=== PATIENT | female | born 1935 | race Caucasian/White ===

== ENCOUNTER 2023-12-23 16:38 | Emergency (ER) | payer OTHER, SELFPAY ==
[2023-12-23 16:42] VITALS: BP 133/94
[2023-12-23 16:43] VITALS: BP 133/94
[2023-12-23 16:46] VITALS: BMI 19.8
[2023-12-23 17:00] VITALS: BP 139/91
[2023-12-23 17:31] LABS: % Basophils 0.4 % (0-2); % Eosinophils 0.6 % (0-6); % Immature Granulocytes 0.2 % (0-0.5); % Lymphocytes 11.1 % (20.5-51.1); % Monocytes 7.6 % (1.7-9.3); % Neutrophils 80.1 % (42.2-75.2); Absolute Eosinophils 0.1 10^3/uL (0-0.7); Absolute Lymphocytes 0.9 10^3/uL (1.2-3.4); Absolute Monocytes 0.6 10^3/uL (0.1-0.6); Absolute Neutrophils 6.7 10^3/uL (1.4-6.5); Hematocrit 41.3 % (37.0-47.0); Hemoglobin 13.6 g/dL (12.0-16.0); Mean Corp Hgb Conc. 32.9 g/dL (33.0-37.0); Mean Corpuscular Hgb 29.2 pg (27.0-31.0); Mean Corpuscular Volume 88.6 fL (81.0-99.0); Mean Platelet Volume 10.2 fL (7.4-10.4); Nucleated Red Blood Cells % 0 %; Platelet Count 233 10^3/uL (130-400); Red Blood Cell Count 4.66 10^6/uL (4.20-5.40); Red Cell Dist. Width 14.4 % (11.5-14.5); White Blood Cell Count 8.4 10^3/uL (4.8-10.8)
[2023-12-23 17:34] LABS: Urine Albumin 1+ (Neg - Trace); Urine Bilirubin 1+ (Negative); Urine Character Very Cloudy (Clear); Urine Color Yellow; Urine Glucose Negative (Negative); Urine Ketone Trace (Negative); Urine Leukocyte 2+ (Negative); Urine Nitrite Negative (Negative); Urine Occult Blood 1+ (Negative); Urine Specific Gravity 1.015 (<1.030); Urine Urobilinogen Negative (Neg - 1+); Urine pH 6.5 (5.0-9.0)
[2023-12-23 17:43] LABS: ALT (SGPT) 17 U/L (0-35); AST (SGOT) 12 U/L (14-36); Albumin 4.3 g/dl (3.5-5.0); Alkaline Phosphatase 107 U/L (38-126); Blood Urea Nitrogen 24 mg/dl (7-17); Calcium 10.8 mg/dl (8.4-10.2); Carbon Dioxide 29 mmol/L (22-30); Chloride 106 mmol/L (98-107); Estimated Creatinine Clearance 44 ml/min; Glucose 116 mg/dl (70-99); Potassium 4.9 mmol/L (3.5-5.1); Sodium 144 mmol/L (135-145); Total Bilirubin 0.7 mg/dl (0.2-1.3); Total Protein 7.1 g/dl (6.3-8.2); eGFR > 60.00
[2023-12-23 17:44] LABS: Lipase 45 U/L (23-300)
[2023-12-23 18:00] VITALS: BP 154/87
[2023-12-23 18:36] LABS: Urine Bacteria Moderate (Negative); Urine White Cell >100 /HPF (0-5)
[2023-12-23 20:22] VITALS: BP 129/84
[2023-12-23] MEDS: MONUROL 3 GM PO (20:45)
[2023-12-23] MEDS: ROCEPHIN 2.85709999999999997 MG IM (22:32)
[2023-12-23 23:06] VITALS: BP 134/73
--- NOTE | 2023-12-23 23:10 | ED.GENMED ---
History of Present Illness
General
Chief Complaint: Abdominal Pain
Source: senior living
Exam Limitations: none
Time Seen by Provider: 12/23/23 16:39
Nursing documentation reviewed up to this point in time: agreed with
Travel History
Have you had any contact with someone who has COVID-19?: Unable to Answer
Do you have any symptoms of coronavirus? Fever > 100 degrees, chills, cough, shortness of breath, sore throat, loss of taste or smell, muscle aches, or headache?: Unable to Answer
History of Present Illness
History of Present Illness:
Patient to ED with complaint of RLQ abdominal pain. Unknown when pain first started. Sent to ED by [facility] staff for eval. On arrival she is awake and alert but confused (baseline). Afebrile.
Past History
Past History
ED Past Medical History: Asthma, HTN, Hypercholesterolemia and Other (Rivera's palsy, vertigo)
ED Past Surgical History: Gynecological and Other (Patient has a history of a hysterectomy, anal fissure repair, bilateral cataract surgery)
Social History
Tobacco: Former smoker
Alcohol: None
Drug: None
Personal:
Living: senior living
Employment: Retired
Family History
Family History: Other (Thyroid disease)
Review of Systems
Review of Systems
Allergies reviewed?: Yes
All Other Systems: ROS reviewed and negative except as documented in HPI and ROS
Constitutional: Reports no symptoms
EENT: Reports no symptoms
Respiratory: Reports no symptoms
Cardiac: Reports no symptoms
ABD/GI: Reports abdominal pain
: Reports no symptoms
Musculoskeletal: Reports no symptoms
Skin: Reports no symptoms
Neurological: Reports no symptoms
Psychiatric: Reports no symptoms
Phy Exam
General Physical Exam
General Presentation: well appearing and no apparent distress
General age: appears stated age
General Skin: warm and dry
General Habitus: normal
General Mental: alert
Cardiovascular Exam
Cardiovascular Exam: regular rate/rhythm and no edema
Pulmonary Exam
Pulmonary Exam: lungs clear and no respiratory distress
Gastrointestinal Exam
Gastrointestinal Exam: normal bowel sounds, no organomegaly, non distended and no cva tenderness
Palpation: generalized: Minimal tenderness
Musculoskeletal Exam
Musculoskeletal Exam: full ROM and neuro vasc intact
Skin Exam
Skin Exam: normal color, warm/dry and no rash
Psychiatric Exam
Psychiatric Exam: normal mood/affect
Course
Orders/Labs/Results
Orders:
Orders
12/23/23 16:53
Abdomen Xray - 1 View [CR Abdomen - 1 View] Urgent
Comment:
Reason For Exam: abd. pain
12/23/23 16:57
Complete Blood Count/With Diff Urgent
Comprehensive Metabolic Panel Urgent
Lipase Urgent
12/23/23 16:59
Urinalysis Reflex To Culture Urgent
Date Specimen was Collected: 12/23/23
Time Specimen was Collected: 16:57
Urine Microscopic Reflex Cult Urgent
Urine Culture Urgent
SALO Source: U
Specimen Description:
Date Specimen was Collected: 12/23/23
Time Specimen was Collected: 16:57
12/23/23 19:20
Enema- Treatment ONCE
Type: Mineral Oil
Fosfomycin [Monurol] 3 gm PO ONCE ONE
12/23/23 23:00
CefTRIAXone [Rocephin] 1,000 mg Intramuscular Injection 0 ml IM ONCE
Abnormal Lab Results
12/23/23 12/23/23
16:57 16:59
MCHC 32.9 L g/dL
(33.0-37.0)
Absolute Neuts (auto) 6.7 H 10^3/uL
(1.4-6.5)
Absolute Lymphs (auto) 0.9 L 10^3/uL
(1.2-3.4)
Neutrophils % 80.1 H %
(42.2-75.2)
Lymphocytes % 11.1 L %
(20.5-51.1)
BUN 24 H mg/dl
(7-17)
Glucose 116 H mg/dl
(70-99)
Calcium 10.8 H mg/dl
(8.4-10.2)
AST 12 L U/L
(14-36)
Urine Ketones Trace A
(Negative)
Ur Occult Blood Reflex 1+ A
(Negative)
Urine Bilirubin 1+ A
(Negative)
Leukocyte Esterase Rfl 2+ A
(Negative)
Urine WBC (Reflex) >100 A /HPF
(0-5)
Urine Bacteria (Reflex) Moderate A
(Negative)
Urine Albumin (Reflex) 1+ A
(Neg - Trace)
12/23/23 16:57
12/23/23 16:57
Vital Signs
Initial and Last Documented VS:
Initial Vital Signs
Temp Pulse Resp BP Pulse Ox
98.9 F 77 18 133/94 96
12/23/23 16:42 12/23/23 16:42 12/23/23 16:42 12/23/23 16:42 12/23/23 16:42
Last Documented Vital Signs
Temp Pulse Resp BP Pulse Ox
98.9 F 75 18 134/73 97
12/23/23 16:42 12/23/23 23:06 12/23/23 23:06 12/23/23 23:06 12/23/23 23:06
*Radiology
Radiology exam reviewed: radiology read reviewed
*Pulse Oximetry
Patient hypoxic: no
*Critical Care Note
Total Time (30-74mins, 75-104mins- exclusive of procedures): Not Applicable
Update Note
Update Note:
Labs reviewed. +UTI. Initially ordered 1 dose of fosfomycin however she as refused to drink med. After multiple failed attempts stephanie was given an IM dose of rocephin. Tolerated med well. She is discharged back to her facility with rx for
bactrim DS. Abd xray reveals large amt of stool in rectum. Given enema in department and she was able to pass a large amt of stool. No further intervention required.
ED Attending Note
-
Portions of this chart may have been created with voice recognition software.� Occasional wrong word or��sound alike� substitutions may have occurred due to the inherent limitations of voice recognition software.
Discharge Plan
Departure
Patient Disposition: Home (Routine Discharge)
Date of Disposition: 12/23/23
Time of Disposition: 20:22
Patient with high blood pressure during this ER visit?: No
Condition: Good
Covid-19: Not Applicable
Discharge Problem:
Urinary tract infection
Instructions: Urinary tract infections in adults, Constipation, Adult (DC)
Prescriptions:
New
sulfamethoxazole-trimethoprim [Bactrim DS] 800-160 mg tablet
1 tab PO BID Qty: 10 0RF
No Action
escitalopram oxalate 5 MG tablet
10 mg PO DAILY
pantoprazole 40 MG tablet,delayed release (DR/EC)
40 mg PO DAILY
atenolol 50 MG tablet
25 mg PO BID
cholecalciferol (vitamin D3) 1,000 UNITS tablet
1,000 units PO BID
atorvastatin [Lipitor] 40 mg Tablet
40 mg PO HS
acetaminophen [Tylenol] 325 mg Tablet
650 mg PO Q6HPRN PRN (Reason: mild pain)
loperamide 2 mg Capsule
4 mg PO TIDPRN PRN (Reason: diarrhea)
benzonatate 200 mg Capsule
200 mg PO TIDPRN PRN (Reason: cough)
magnesium hydroxide [Milk of Magnesia] 400 mg/5 mL Suspension
2,400 mg PO [id number] PRN (Reason: if no bm by 3rd day)
bisacodyl [Dulcolax (bisacodyl)] 10 mg Suppository
10 mg AR DAILYPRN PRN (Reason: if no bm aftr mom)
Citrucel 500 mg Tablet
500 mg PO BID
mirtazapine [Remeron] 15 mg Tablet
7.5 mg PO HS
carbidopa-levodopa 25-100 mg Tablet
1 tab PO TID
memantine [Namenda] 5 mg Tablet
5 mg PO BID
ranolazine [Ranexa] 500 mg Tablet Extended Release 12 Hr
500 mg PO BID
polyethylene glycol 3350 17 GRAMS powder in packet
17 grams PO BID
Referrals:
Kemi Smith DO [Family Provider] - Follow up in 2-3 days
Interventions
Interventions:
*Risk Screen - Suicide Last Done: 12/23/23 16:42
*General Assessment Last Done: 12/23/23 16:42
*Neglect/Abuse Screening Last Done: 12/23/23 16:42
ED- Fall Risk Assessment Last Done: 12/23/23 16:47
*ED COVID-19 Vaccine History Last Done: 12/23/23 16:47
*Nursing Disposition Last Done: 12/24/23 03:25
TV-Tldigo-Dwuauefgzf Assessment Last Done: 12/23/23 16:47
Discharge Date and Time
Discharge Date/Time: 12/24/23 03:25
Print Language: CZECH
== END 2023-12-24 03:25 | disposition home or self-care (01) ==
LOC: EMR 16:38
PROVIDERS: Nurse Practitioner; EMERGENCY PHYSICIAN Emergency Medicine; FAMILY PHYSICIAN Student in an Organized Health Care Education/Training Program
DX: N39.0 Urinary tract infection, site not specified (principal); I10 Essential (primary) hypertension; Z87.891 Personal history of nicotine dependence
CPT/HCPCS: 99284; 96372; 74018; 80053; 81003; 81015; 83690; 85025; 87071; 87086; 87186

== ENCOUNTER 2024-02-08 12:19 | Emergency (ER) | payer OTHER, SELFPAY ==
[2024-02-08] VITALS (7 sets, daily range): BP systolic 119–163; BP diastolic 58–89; BMI 19.8
--- NOTE | 2024-02-08 12:46 | ED.GENMED ---
History of Present Illness
General
Chief Complaint: Fall
Source: ambulance crew
Time Seen by Provider: 02/08/24 12:31
History of Present Illness
History of Present Illness:
88-year-old female presents to the emergency room from [facility] after a fall. Patient reportedly does fall on a regular basis but evidently they feel she seems weak compared to her baseline. She was initially treated for UTI with Cipro. Patient
offers no complaints other than being tired. The fall was evidently witnessed and did not seem to cause any injury
Past History
Past History
ED Past Medical History: Asthma, HTN, Hypercholesterolemia and Other (Rivera's palsy, vertigo)
ED Past Surgical History: Gynecological and Other (Patient has a history of a hysterectomy, anal fissure repair, bilateral cataract surgery)
Social History
Tobacco: Former smoker
Alcohol: None
Drug: None
Personal:
Living: senior care
Employment: Retired
Family History
Family History: Other (Thyroid disease)
Phy Exam
Physical Exam
Physical Exam:
General: Awake, tired but responsive. Oriented only to person
Vitals: unremarkable
Head: Atraumatic
Eyes: Pupils equal, EOMI
Throat: Airway intact, no exudates
Neck: Trachea midline
Lungs: Clear and equal b/l
Heart: Regular rate, no murmurs
Abd: Soft, Nontender, No pulsatile mass
Neuro: Nonfocal
Skin: Warm, dry, no rash
Extremities: pulses equal b/l, no edema no pain with range of motion of the arms or legs.
Course
Orders/Labs/Results
Orders:
Orders
02/08/24 12:33
Complete Blood Count/With Diff Urgent
Comprehensive Metabolic Panel Urgent
Urinalysis Reflex To Culture Urgent
Date Specimen was Collected: 02/08/24
Time Specimen was Collected: 12:31
Urine Microscopic Reflex Cult Urgent
02/08/24 12:46
CT Head W/o Iv Contrast Urgent
Comment:
Reason For Exam: frequent falls
02/08/24 16:09
Risperidone Disintegrating [Risperdal M-Tab (Orally Disintegrating)] 0.5 mg PO NOW STA
Abnormal Lab Results
02/08/24
12:33
Absolute Lymphs (auto) 1.1 L 10^3/uL
(1.2-3.4)
Calcium 10.6 H mg/dl
(8.4-10.2)
Urine Ketones 1+ A
(Negative)
Urine Bilirubin 1+ A
(Negative)
Leukocyte Esterase Rfl Trace A
(Negative)
Urine Bacteria (Reflex) Few A
(Negative)
02/08/24 12:33
02/08/24 12:33
Vital Signs
Initial and Last Documented VS:
Initial Vital Signs
Temp
98.1 F
02/08/24 12:22
Last Documented Vital Signs
Temp Pulse Resp BP Pulse Ox
98.8 F 97 20 149/89 98
02/08/24 12:45 02/08/24 12:45 02/08/24 12:25 02/08/24 17:00 02/08/24 15:20
MDM/Problems Addressed
Differential Diagnosis Includes:
UTI, subdural, electrode abnormality
MDM/Problems Addressed:
CT of the head shows nothing acute. Her urinalysis is not consistent with a urinary tract infection. Remainder of her labs are reassuring. Family describes a progressive decline in the patient's confusion and that she is now somewhat agitated at
times. There is no evidence for a emergent or unstable process. Suspect her symptoms are related to progression of dementia. Patient stable for discharge back to her facility.
*Radiology
Radiology exam reviewed: radiology read reviewed
*Pulse Oximetry
Patient hypoxic: no
*Critical Care Note
Total Time (30-74mins, 75-104mins- exclusive of procedures): Not Applicable
Patient Management
Social determinants of health affecting care: Living situation
ED Attending Note
-
Portions of this chart may have been created with voice recognition software.� Occasional wrong word or��sound alike� substitutions may have occurred due to the inherent limitations of voice recognition software.
Discharge Plan
Departure
Patient Disposition: Retirement/SNF
Date of Disposition: 02/08/24
Time of Disposition: 15:21
Discharge Problem:
Fall
Instructions: Preventing falls in adults
Prescriptions:
No Action
escitalopram oxalate 5 MG tablet
10 mg PO DAILY
pantoprazole 40 MG tablet,delayed release (DR/EC)
40 mg PO DAILY
cholecalciferol (vitamin D3) 1,000 UNITS tablet
1,000 units PO DAILY
atorvastatin [Lipitor] 40 mg Tablet
40 mg PO HS
acetaminophen [Tylenol] 325 mg Tablet
650 mg PO Q6HPRN PRN (Reason: mild pain)
mirtazapine [Remeron] 15 mg Tablet
7.5 mg PO HS
carbidopa-levodopa 25-100 mg Tablet
1 tab PO TID
ranolazine [Ranexa] 500 mg Tablet Extended Release 12 Hr
500 mg PO BID
polyethylene glycol 3350 17 GRAMS powder in packet
17 grams PO BID
ciprofloxacin HCl [Cipro] 250 mg Tablet
250 mg PO BID
Patient Comments:
started on 02-02-24
alprazolam [Xanax] 0.5 mg Tablet
0.5 mg PO Q6HPRN PRN (Reason: anxiety)
memantine 5 mg Tablet
5 mg PO BID
diclofenac sodium [Voltaren] 1 % Gel
4 g TOPICAL DAILYPRN PRN (Reason: right middle back)
Senna Plus 8.6-50 mg Capsule
1 tab-cap PO DAILY
Referrals:
UNKNOWN,NO INTERVIEW [Family Provider] -
Interventions
Interventions:
*Risk Screen - Suicide Last Done: 02/08/24 12:22
*General Assessment Last Done: 02/08/24 12:22
*Neglect/Abuse Screening Last Done: 02/08/24 12:22
ED- Fall Risk Assessment Last Done: 02/08/24 17:45
*ED COVID-19 Vaccine History Last Done: 02/08/24 17:47
*Nursing Disposition Last Done: 02/08/24 17:45
ED-Musculoskeletal Assessment Last Done: 02/08/24 12:48
ED- Neurological Assessment Last Done: 02/08/24 12:47
ED-Skin Assessment Last Done: 02/08/24 12:47
Discharge Date and Time
Discharge Date/Time: 02/08/24 17:35
Print Language: SETSWANA
[2024-02-08 12:57] LABS: % Basophils 0.6 % (0-2); % Eosinophils 1.5 % (0-6); % Immature Granulocytes 0.2 % (0-0.5); % Lymphocytes 22.4 % (20.5-51.1); % Monocytes 9.2 % (1.7-9.3); % Neutrophils 66.1 % (42.2-75.2); Absolute Eosinophils 0.1 10^3/uL (0-0.7); Absolute Lymphocytes 1.1 10^3/uL (1.2-3.4); Absolute Monocytes 0.4 10^3/uL (0.1-0.6); Absolute Neutrophils 3.2 10^3/uL (1.4-6.5); Hematocrit 37.9 % (37.0-47.0); Hemoglobin 12.5 g/dL (12.0-16.0); Mean Corpuscular Hgb 29.5 pg (27.0-31.0); Mean Corpuscular Volume 89.4 fL (81.0-99.0); Mean Platelet Volume 10.3 fL (7.4-10.4); Nucleated Red Blood Cells % 0 %; Platelet Count 208 10^3/uL (130-400); Red Blood Cell Count 4.24 10^6/uL (4.20-5.40); Red Cell Dist. Width 14.2 % (11.5-14.5); White Blood Cell Count 4.8 10^3/uL (4.8-10.8)
[2024-02-08 13:11] LABS: ALT (SGPT) < 10 U/L (0-35); AST (SGOT) 17 U/L (14-36); Alkaline Phosphatase 106 U/L (38-126); Blood Urea Nitrogen 17 mg/dl (7-17); Calcium 10.6 mg/dl (8.4-10.2); Carbon Dioxide 28 mmol/L (22-30); Chloride 106 mmol/L (98-107); Estimated Creatinine Clearance 51 ml/min; Glucose 84 mg/dl (70-99); Potassium 3.9 mmol/L (3.5-5.1); Sodium 142 mmol/L (135-145); Total Bilirubin 0.8 mg/dl (0.2-1.3); Total Protein 6.6 g/dl (6.3-8.2); eGFR > 60.00
[2024-02-08 13:31] LABS: Urine Albumin Trace (Neg - Trace); Urine Bilirubin 1+ (Negative); Urine Character Clear (Clear); Urine Color Amber; Urine Glucose Negative (Negative); Urine Ketone 1+ (Negative); Urine Leukocyte Trace (Negative); Urine Nitrite Negative (Negative); Urine Occult Blood Negative (Negative); Urine Specific Gravity 1.025 (<1.030); Urine Urobilinogen 1+ (Neg - 1+)
[2024-02-08 13:57] LABS: Urine Calcium Oxalate Crystals Seen
[2024-02-08 13:58] LABS: Urine Mucus Moderate
[2024-02-08 14:03] LABS: Urine Bacteria Few (Negative); Urine Red Blood Cell 0-2 /HPF (0-2)
[2024-02-08] MEDS: RISPERDAL M-TAB (ORALLY DISINTEGRATING) 0.5 MG PO (16:36)
== END 2024-02-08 17:35 ==
LOC: EMR 12:19
PROVIDERS: EMERGENCY PHYSICIAN Emergency Medicine
DX: R29.6 Repeated falls (principal); W19.XXXA Unspecified fall, initial encounter; Z87.891 Personal history of nicotine dependence
CPT/HCPCS: 99284; 70450; 80053; 81003; 81015; 85025